=== PATIENT | male | born 2000 | race Caucasian/White ===

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

== ENCOUNTER 2021-01-06 13:21 | Emergency (ER) | payer OTHER ==
[~2021-01-06] VITALS: Ht 175.3 cm; Wt 68.0 kg
[~2021-01-06 13:21] MED LIST changes: +AMITRIPTYLINE H50 M2 PO
[2021-01-06] MEDS ORDERED: PROCTO-MED HC28 GM RECTAL (14:19)
[2021-01-06] MEDS ORDERED: TUCKS1 EAC1 TOP (14:19)
[2021-01-06] MEDS ORDERED: IBUPROFEN 600600 M1 PO (14:19)
[2021-01-06] MEDS ORDERED: MIRALAX17 GM PO (14:19)
[2021-01-06 14:29] VITALS: BP 134/86
== END 2021-01-06 14:31 | disposition home or self-care (01) ==
LOC: M.ERS 13:21
DX: K62.5 Hemorrhage of anus and rectum (principal); F17.210 Nicotine dependence, cigarettes, uncomplicated; Z88.8 Allergy status to other drugs, medicaments and biological substances